=== PATIENT | female | born 1935 | race Caucasian/White ===

== ENCOUNTER 2016-10-17 11:53 | Day surgery (SDC) | payer MEDICARE ==
--- NOTE | ~2016-10-17 | OP ---
Record Of [facility] [address] [place]. [address] NAME: TIMOTHY OLIVREA : [birth year] STATUS : [facility]#: [id number] AGE: 81 ADM/REG DATE : 10/17/16 MR#: [id number] REPORT SERV DATE: 11/06/16 DICTATED BY: CHANDAN MADRIGAL II DATE: 11/06/16 REPORT STATUS : Draft TRANSCRIBED BY: MODL DATE: 11/06/16 DATE OF PROCEDURE: 10/17/2016 PREOPERATIVE DIAGNOSES: 1. Hypertension. 2. Right renal artery stenosis/occlusion. POSTOPERATIVE DIAGNOSES: 1. Hypertension. 2. Right renal artery stenosis/occlusion. PROCEDURES: 1. Abdominal aortogram. 2. Right renal angiogram. ANESTHESIA: Local with MAC. IV FLUIDS: 600 mL. ESTIMATED BLOOD LOSS: 10. CONTRAST: 43. BRIEF HISTORY: Ms. Olivera is a 81-year-old female, who has had a previous stent graft repair of an aortic aneurysm. She presents with worsening malignant hypertension and an ultrasound concerning for a severe right renal stenosis and possible occlusion. DETAILS: She was taken to the operating room and placed in supine position on table. Both groins were prepped and draped. We used ultrasound to identify the right common femoral, performed a puncture, and placed a 5-Yoruba sheath. We placed a catheter in the abdominal aorta. Aortogram was performed demonstrating a patent abdominal aorta. The left renal is patent. There was a stent graft identified that was patent. There was no evidence of endoleak. The distal aorta was patent with no abnormality seen. The right renal artery was not well visualized. There was some reconstitution of the right renal artery distally. At this point, we exchanged for selective catheter. We advanced this into the origin of the right renal artery. Angiogram was performed and this demonstrates a complete occlusion of the right renal what appears to be the orifice just above the stent graft. Calcification was noted. There was again some reconstitution distally. We attempted several times with a variety of wires and catheters to pass through the occlusion, but we were unable to do so safely. At this point, I did not think she had any further endovascular options. We removed all the wires and catheters and closed percutaneously. At the end of the procedure, the patient was stable. She tolerated it well. LS/MODL Record Of [facility] [address] [address] NAME: TIMOTHY OLIVERA : [birth year] STATUS : [facility] PAT#: [id number] AGE: 81 ADM/REG DATE : 10/17/16 MR#: [id number] REPORT SERV DATE: 11/06/16 DICTATED BY: CHANDAN MADRIGAL II DATE: 11/06/16 REPORT STATUS : Draft TRANSCRIBED BY: MODL DATE: 11/06/16 Chandan Madrigal II, M.D. / [id number] CC: Luiz Taylor II, M.D.
[~2016-10-17 11:53] MED LIST: ACET500CAP PO; ADVIL PO; CALTRA600D PO; LIPITOR40 PO; MULTIVITAMI1 PO; PROMEGA PO; ZYRTEC ALLGY10 MG PO
[2016-10-17 12:40] LABS: BASOPHILS 0.6 %; BASOPHILS ABSOLUTE 0.04 10/3/uL (0.0-0.16); EOSINOPHILS 1.7 %; EOSINOPHILS ABSOLUTE 0.11 10/3/uL (0.0-0.53); HEMATOCRIT 41.3 % (36.0-48.0); HEMOGLOBIN 13.6 g/dL (12.0-16.0); IMMATURE GRANULOCYTES 0.2 %; IMMATURE GRANULOCYTES ABSOLUTE 0.01 10/3/uL (0.0-0.11); LYMPHOCYTES 26.2 %; LYMPHOCYTES ABSOLUTE 1.69 10/3/uL (0.67-4.30); MEAN CORPUS HGB CONC 32.9 g/dL (32.0-36.0); MEAN CORPUSCULAR HEMOGLOB 30.3 pg (26.0-34.0); MEAN PLATELET VOLUME 10.2 fL (9.2-13.0); MONOCYTES 8.1 %; MONOCYTES ABSOLUTE 0.52 10/3/uL (0.21-1.20); NEUTROPHILS 63.2 %; NEUTROPHILS ABSOLUTE 4.07 10/3/uL (2.02-8.40); PLATELET COUNT 247 10/3/uL (150-400); RBC DISTRIBUTION WIDTH 14.9 % (12.0-16.0); RED CELL COUNT 4.49 10/6/uL (4.0-5.6); WHITE BLOOD CELLS 6.4 10/3/uL (4.5-10.5)
[2016-10-17 12:43] LABS: MANUAL DIFF NO %
[2016-10-17 12:55] LABS: BUN (BLOOD UREA NITROGEN) 12 MG/DL (6-23); CALCIUM, SERUM 9.2 MG/DL (8.5-10.4); CHLORIDE, SERUM 106 MMOL/L (96-112); CO2 (CARBON DIOXIDE) 27 MMOL/L (24-34); GFR AFRICAN AMERICAN 81 ML/MIN (>=60); GFR NON AFRICAN AMERICAN 70 ML/MIN (>=60); POTASSIUM, SERUM 3.9 MMOL/L (3.5-5.3); SODIUM, SERUM 143 MMOL/L (135-148)
[2016-10-17 12:56] LABS: GLUCOSE, SERUM 108 MG/DL (60-99)
[2017-01-16] MEDS ORDERED: LOP25 PO (15:04)
[2017-01-16] MEDS ORDERED: CAT1 PO (15:04)
== END 2016-10-17 19:01 | disposition home or self-care (01) ==
LOC: SDC 11:53 → SSU1 16:32
PROVIDERS: Surgery
PROC: 04H93DZ Insertion of Intraluminal Device into Right Renal Artery, Percutaneous Approach (ICD-10-PCS; principal; 2016-10-17 13:15)
DX: I70.1 Atherosclerosis of renal artery (principal); I10 Essential (primary) hypertension; I71.4 Abdominal aortic aneurysm, without rupture; I45.10 Unspecified right bundle-branch block; F17.210 Nicotine dependence, cigarettes, uncomplicated; E78.00 Pure hypercholesterolemia, unspecified; M19.90 Unspecified osteoarthritis, unspecified site; Z88.1 Allergy status to other antibiotic agents; Z79.52 Long term (current) use of systemic steroids; Z79.899 Other long term (current) drug therapy; Z79.1 Long term (current) use of non-steroidal anti-inflammatories (NSAID); Z88.0 Allergy status to penicillin; Z87.891 Personal history of nicotine dependence; Z90.89 Acquired absence of other organs; Z98.41 Cataract extraction status, right eye; Z98.42 Cataract extraction status, left eye; Z90.49 Acquired absence of other specified parts of digestive tract; Z98.890 Other specified postprocedural states
CPT/HCPCS: 36251; 80048; 85025; 93005; A9270-GY; C1760; C1769; C1894; J0690; J3010; Q9966

== ENCOUNTER 2017-01-21 06:29 | Day surgery (SDC) | payer MEDICARE ==
--- NOTE | ~2017-01-21 | EGD ---
EGD REPORT [facility] [address] [address] NAME: TIMOTHY OLIVERA : 39 STATUS : REG [facility] PAT#: [id number] AGE: 81 ADM/REG DATE : 01/21/17 MR#: [id number] REPORT SERV DATE: 01/21/17 DICTATED BY: CARLY LUZ DATE: 01/21/17 REPORT STATUS : Draft TRANSCRIBED BY: [facility] DATE: 01/21/17 End[facility] Patient Name: Timothy Olivera Date of : 1935 Attending MD: CARLY LUZ MD Procedure Date No Time: 01/21/2017 Procedure: Upper GI endoscopy Indications: Dysphagia; Nexium OTC daily. Patient Profile: Informed consent was obtained from the patient by me prior to the procedure. Risks, benefits, and alternatives were discussed including the risk of bleeding, perforation, infection, reaction to medicine, missed lesion, and cardiopulmonary complications. Referring MD: SHENG PEREZ II Medicines: Monitored Anesthesia Care Complications: No immediate complications. Procedure: Pre-Anesthesia Assessment: - ASA Grade Assessment: III - A patient with severe systemic disease. After obtaining informed consent, the endoscope was passed under direct vision. Throughout the procedure, the patient's blood pressure, pulse, and oxygen saturations were monitored continuously. The GIF [id number] was introduced through the mouth, and advanced to the second part of duodenum. The endoscope was withdrawn with careful examination all mucosal surfaces including retroflexion stomach. The upper GI endoscopy was accomplished without difficulty. The patient tolerated the procedure well. Findings: The first part of the duodenum and 2nd part of the duodenum were normal. Biopsies were taken with a cold forceps for histology. The entire examined stomach was normal. The examined esophagus was normal except distal benign ring at GEJ. 48F Savary dilation performed over guidewire held in antrum; no resistance to dilation; endoscopic visualization afterwards superficial mucosal break over distal ring. The esophagus and gastroesophageal junction were examined with white light. There was no visual evidence of Elizabeth's esophagus. Impression: - Normal first part of the duodenum and 2nd part of the duodenum. Biopsied. - Normal stomach. - Normal esophagus. Dilated. EGD REPORT [address] [address] NAME: TIMOTHY OLIVERA : 39 STATUS : REG [facility] PAT#: [id number] AGE: 81 ADM/REG DATE : 01/21/17 MR#: [id number] REPORT SERV DATE: 01/21/17 DICTATED BY: CARLY LUZ DATE: 01/21/17 REPORT STATUS : Draft TRANSCRIBED BY: [facility] DATE: 01/21/17 - There is no endoscopic evidence of Elizabeth's esophagus. Recommendation: - Patient has a contact number available for emergencies. The signs and symptoms of potential delayed complications were discussed with the patient. Return to normal activities tomorrow. Written discharge instructions were provided to the patient. - Regular diet. - Continue present medications. - Await pathology results. - Weight now stabilized. - Schd colonoscopy h/o colon polyps Mem AA. Procedure Code(s): --- Professional --- 27367, Esophagogastroduodenoscopy, flexible, transoral; with insertion of guide wire followed by passage of dilator(s) through esophagus over guide wire 56789, Esophagogastroduodenoscopy, flexible, transoral; with biopsy, single or multiple Diagnosis Code(s): --- Professional --- R13.10, Dysphagia, unspecified CPT copyright 2013 [employer]. All rights reserved. The codes documented in this report are preliminary and upon office rental clerk review may be revised to meet current compliance requirements. CARLY LUZ MD 01/21/2017 7:58 AM This report has been signed electronically. Number of Addenda: 0 Note Initiated On: 01/21/2017 7:39 AM Scope Withdrawal Time 0 hours 0 minutes 0 seconds [address] [address]
[~2017-01-21 06:29] MED LIST changes: +CAT1 PO; +LOP25 PO
== END 2017-01-21 23:59 | disposition home or self-care (01) ==
LOC: DMU 06:29
PROVIDERS: Internal Medicine Gastroenterology
PROC: 0DB98ZX Excision of Duodenum, Via Natural or Artificial Opening Endoscopic, Diagnostic (ICD-10-PCS; principal; 2017-01-21 08:00)
PROC: 0D738ZZ Dilation of Lower Esophagus, Via Natural or Artificial Opening Endoscopic (ICD-10-PCS; 2017-01-21 08:00)
DX: R13.10 Dysphagia, unspecified (principal); E78.5 Hyperlipidemia, unspecified; I10 Essential (primary) hypertension; I73.9 Peripheral vascular disease, unspecified; I71.4 Abdominal aortic aneurysm, without rupture; I70.1 Atherosclerosis of renal artery; F17.210 Nicotine dependence, cigarettes, uncomplicated; Z88.1 Allergy status to other antibiotic agents; Z88.8 Allergy status to other drugs, medicaments and biological substances; Z79.52 Long term (current) use of systemic steroids; Z79.1 Long term (current) use of non-steroidal anti-inflammatories (NSAID); Z79.899 Other long term (current) drug therapy; Z98.41 Cataract extraction status, right eye; Z98.42 Cataract extraction status, left eye; Z90.89 Acquired absence of other organs; Z90.710 Acquired absence of both cervix and uterus; Z98.890 Other specified postprocedural states
CPT/HCPCS: 88305